=== PATIENT | male | born 1980 | race Two or more races ===

== ENCOUNTER 2019-01-29 19:27 | Emergency (ER) | payer OTHER ==
[2019-01-29] MEDS ORDERED: IBUPROFEN 400 MG TABLET (FP) PO ONE ×2 (19:39→19:51)
[2019-01-29 20:10] VITALS: BP 146/97; PULSE 67; TEMP 97.8; BMI 24.3
--- NOTE | 2019-01-29 20:12 | PDOC ---
Documentation entered by Reuben Landers SCRIBE, acting as scribe for Ko Mann MD. Ko Mann MD: This documentation has been prepared by the Anshul reese Joel, SCRIBE, under my direction and personally reviewed by me in its entirety. I confirm that the documentation accurately reflects all work , treatment, procedures, and medical decision making performed by me. History of Present Illness - General Chief Complaint: Pain, Acute Stated Complaint: TRIPPED AND INJURED RIGHT FOOT Time Seen by Provider: 01/29/19 19:38 History Source: Patient Exam Limitations: No Limitations - History of Present Illness Initial Comments: 01/29/19 19:43 The patient is a 38 year old male who presents to the emergency department with right foot pain s/p mechanical fall. The patient states he was walking up the stairs when he tripped on the riser of the first step and hit his right foot. The patient denies hitting his head or LOC. The patient denies chest pain, shortness of breath, headache, and dizziness. Denies fever, chills, nausea, vomit, diarrhea, and constipation. Denies dysuria, frequency, urgency, and hematuria. PAST MEDICAL HISTORY: no significant history PAST SURGICAL HISTORY: Unspecified R foot ortho procedure. FAMILY HISTORY: no pertinent history SOCIAL HISTORY: Pt lives with family and is employed. MEDICATIONS: reviewed ALLERGIES: NKA 01/29/19 20:10 Assessment and plan: This is a 38-year-old tripped while going up stairs injuring the dorsum of his foot. Patient most likely hyperextended the foot resulting in pain to the dorsum of the foot. Patient had an x-ray that was negative for any acute new pathology patient does have an old ankle fracture with hardware in place that appears to be intact. Patient given Motrin here in the ED and discharged home told to continue the Motrin or take some naproxen. Past History - Past Medical History Allergies/Adverse Reactions: Allergies Allergy/AdvReac Type Severity Reaction Status Date / Time No Known Allergies Allergy Verified 01/29/19 19:29 Home Medications: Ambulatory Orders NK [No Known Home Medication] 01/29/19 COPD: No Other medical history: DENIES - Suicide/Smoking/Psychosocial Hx Smoking History: Never smoked Have you smoked in the past 12 months: No Information on smoking cessation initiated: No Hx Alcohol Use: No Drug/Substance Use Hx: No Review of Systems - Review of Systems Able to Perform ROS?: Yes Comments:: 01/29/19 19:43 General: No fevers or chills, no weakness, no weight loss HEENT: No change in vision. No sore throat,. No ear pain CardioVascular: No chest pain or shortness of breath Respiratory: No cough, or wheezing. Gastrointestinal: no nausea, vomiting, diarrhea or constipation, No rectal bleeding Genitourinary: No dysuria, hematuria, or frequency Musculoskeletal: (+) Right foot pain. No joint pain. No joint or muscle swelling. Neurologic: No headache, vertigo, dizziness or loss of consciousness Psychiatric: nor depression Skin: No rashes or easy bruising Endocrine: no increased thirst or abnormal weight change Allergic: no skin or latex allergy All other systems reviewed and normal *Physical Exam - Vital Signs Last Vital Signs Temp Pulse Resp BP Pulse Ox 97.8 F 67 16 146/97 97 01/29/19 19:30 01/29/19 19:30 01/29/19 19:30 01/29/19 19:30 01/29/19 19:30 - Physical Exam Comments: 01/29/19 19:43 GENERAL: The patient is awake, alert, and fully oriented, in no acute distress. HEAD: Normal with no signs of trauma. EYES: Pupils equal, round and reactive to light, extraocular movements intact, sclera anicteric, conjunctiva clear. EXTREMITIES: (+) Tenderness on palpation to proximal portion of dorsum of right foot. Minimal swelling, no ecchymosis. No bony tenderness or deformity around right ankle. Neurovasculature distally intact. Normal range of motion. NEUROLOGICAL: Normal speech, normal gait. PSYCH: Normal mood, normal affect. SKIN: Warm, Dry, normal turgor, no rashes or lesions noted. ED Treatment Course - RADIOLOGY Radiology Studies Ordered: Category Date Time Status FOOT-RIGHT [RAD] Stat Radiology 01/29/19 19:38 Ordered - Medications Given in the ED: ED Medications Discontinued Medications Generic Name Dose Route Start Last Admin Trade Name Freq PRN Reason Stop Dose Admin Ibuprofen 800 mg 01/29/19 19:39 01/29/19 19:55 Motrin - PO 01/29/19 19:40 800 mg ONCE ONE Administration *DC/Admit/Observation/Transfer Diagnosis at time of Disposition: Sprain of right foot Qualifiers: Encounter type: initial encounter Qualified Code(s): S93.601A - Unspecified sprain of right foot, initial encounter - Discharge Dispostion Disposition: HOME Condition at time of disposition: Stable Decision to Admit order: No - Referrals - Patient Instructions Additional Instructions: For the pain U can take ibuprofen 3 tablets 3 times a day with food or alternatively Aleve 2 tablets twice a day with food. Return to the emergency department immediately with ANY new, persistent or worsening symptoms. Continue any medications as previously prescribed by your physician. You should follow up with your primary doctor as soon as possible regarding today's emergency department visit. . Please make sure your doctor reviews the results of your emergency evaluation. Thank you for coming to the Emergency Department today for your care. It was a pleasure to see you today. Please note that your evaluation is INCOMPLETE until you follow-up with your doctor. - Post Discharge Activity
== END 2019-01-29 20:20 | disposition home or self-care (01) ==
LOC: FER 19:27
DX: S93.601A Unspecified sprain of right foot, initial encounter (principal); X58.XXXA Exposure to other specified factors, initial encounter; Y93.89 Activity, other specified; Y92.89 Other specified places as the place of occurrence of the external cause
CPT/HCPCS: 73630-TC-RT-FY; 99281-25

== ENCOUNTER 2022-01-08 06:23 | Emergency (ER) | payer OTHER ==
[2022-01-08 06:38] VITALS: BP 128/61; PULSE 85; TEMP 98.1; BMI 25.8
[2022-01-08] MEDS ORDERED: ACETAMINOPHEN 500 MG TABLET (FP) PO ONE (07:06)
[2022-01-08] MEDS ORDERED: ACETAMINOPHEN 325 MG TABLET (FP) ONE (07:11)
[2022-01-08] MEDS ORDERED: KETOROLAC TROMETHAMINE 30 MG/1 ML VIAL IM ONE (07:24)
[2022-01-08] MEDS ORDERED: KETOROLAC TROMETHAMINE 30 MG/1 ML VIAL ONE (07:47)
[2022-01-08 09:11] LABS: BASO % 0.1 % (0-2.0); EOS % 0.2 % (0-4.5); HEMATOCRIT 41.3 % (35.4-49); HEMOGLOBIN 14.3 GM/dL (11.7-16.9); LYMPH % 5.6 % (8-40); MCH 29.4 pg (25.7-33.7); MCHC 34.7 g/dl (32.0-35.9); MEAN CELL VOLUME 84.8 fl (80-96); MEAN PLT VOLUME 8.1 fl (7.5-11.1); NEUT % 88.1 % (42.8-82.8); PLATELET COUNT 367 10^3/uL (134-434); RBC 4.88 M/mm3 (4.00-5.60); RDW 13.5 % (11.9-15.9); WHITE BLOOD COUNT 16.8 K/mm3 (4.0-10.0)
[2022-01-08 09:18] LABS: INR 1.07 (0.83-1.09); PROTHROMBIN TIME (PATIENT) 12.3 SEC (9.7-13.0)
[2022-01-08 09:20] LABS: ACTIVATED PTT 28.8 SECONDS (25.2-36.5)
[2022-01-08 10:11] LABS: CALCIUM 8.5 mg/dL (8.5-10.1)
[2022-01-08 10:12] LABS: ALBUMIN 3.7 g/dl (3.4-5.0); BLOOD UREA NITROGEN 13.7 mg/dL (7-18)
[2022-01-08 10:15] LABS: CREATININE 0.8 mg/dL (0.55-1.3)
[2022-01-08 10:16] LABS: BILIRUBIN,TOTAL 0.3 mg/dL (0.2-1)
[2022-01-08 10:17] LABS: TOT PROT 7.3 g/dl (6.4-8.2)
== END 2022-01-08 09:40 | disposition short-term general hospital (02) ==
LOC: JER 06:23
PROC: 3E023GC Introduction of Other Therapeutic Substance into Muscle, Percutaneous Approach (ICD-10-PCS; principal; 2022-01-08)
DX: S92.002A Unspecified fracture of left calcaneus, initial encounter for closed fracture (principal); W17.89XA Other fall from one level to another, initial encounter
CPT/HCPCS: 36415; 73610-TC-LT-FY; 73610-TC-RT-FY; 73630-TC-LT; 73630-TC-RT-FY; 73650-TC-LT-FY; 73650-TC-RT-FY; 80053; 85025; 85610; 85730; 99285-25; C9803-CS; U0003; U0005

== ENCOUNTER 2023-01-12 13:45 | Emergency (ER) | payer OTHER ==
[2023-01-12] MEDS ORDERED: IBUPROFEN 600 MG TABLET (FP) PO ONE ×2 (14:18→14:55)
[2023-01-12 14:22] VITALS: BP 124/90; PULSE 82; RESP 16; BMI 23.6
[2023-01-12 15:00] VITALS: TEMP 99.8
== END 2023-01-12 15:40 | disposition home or self-care (01) ==
LOC: FER 13:45
DX: R59.1 Generalized enlarged lymph nodes (principal); S39.011A Strain of muscle, fascia and tendon of abdomen, initial encounter; R10.31 Right lower quadrant pain; X50.0XXA Overexertion from strenuous movement or load, initial encounter; Y93.79 Activity, other specified sports and athletics; Y93.9 Activity, unspecified; Z20.822 Contact with and (suspected) exposure to COVID-19
CPT/HCPCS: 0241U-QW; 36415; 73502-TC-RT-FY; 81003; 81015; 87086; 87491; 87591; 99284-25

== ENCOUNTER 2023-04-17 10:28 | Emergency (ER) | payer OTHER ==
[2023-04-17 10:46] VITALS: BP 127/92; PULSE 99; RESP 18; TEMP 98.4; BMI 22.9
== END 2023-04-17 11:05 | disposition home or self-care (01) ==
LOC: FER 10:28
DX: H57.89 Other specified disorders of eye and adnexa (principal); H10.13 Acute atopic conjunctivitis, bilateral
CPT/HCPCS: 99282-25

== ENCOUNTER 2023-06-18 13:20 | Emergency (ER) | payer OTHER ==
[2023-06-18 13:48] VITALS: BP 131/84; PULSE 82; RESP 18; TEMP 98.4; BMI 22.9
[2023-06-18] MEDS ORDERED: SODIUM CHLORIDE 1,000 ML IV ONE (14:20)
[2023-06-18 14:46] LABS: HEMATOCRIT 41.1 % (35.4-49); HEMOGLOBIN 13.9 G/dL (11.7-16.9); MCH 29.7 pg (25.7-33.7); MCHC 33.8 g/dl (32.0-35.9); MEAN CELL VOLUME 87.6 fl (80-96); MEAN PLT VOLUME 7.9 fl (7.5-11.1); PLATELET COUNT 363.9 10^3/uL (134-434); RBC 4.69 10^6/uL (4.00-5.60); RDW 14.3 % (11.9-15.9); WHITE BLOOD COUNT 10.9 10^3/uL (4.0-10.8)
[2023-06-18 15:11] LABS: ALBUMIN 4.2 g/dl (3.4-5.0); BILIRUBIN,TOTAL 0.4 mg/dl (0.2-1); CALCIUM 9.2 mg/dl (8.5-10.1); CREATININE 0.7 mg/dl (0.6-1.3); POTASSIUM 3.6 mmol/L (3.5-5.1); TOT PROT 7.2 g/dl (6.4-8.2)
[2023-06-18 16:20] LABS: PLATELET ESTIMATE SIGNIFICANT INCREASE
[2023-06-18] MEDS ORDERED: AZITHROMYCIN 250 MG TABLET ONE (16:51)
== END 2023-06-18 16:04 | disposition home or self-care (01) ==
LOC: FER 13:20
PROC: 3E0337Z Introduction of Electrolytic and Water Balance Substance into Peripheral Vein, Percutaneous Approach (ICD-10-PCS; principal; 2023-06-18)
DX: R19.7 Diarrhea, unspecified (principal); Z20.822 Contact with and (suspected) exposure to COVID-19
CPT/HCPCS: 0241U-QW; 36415; 80053; 85027; 99284-25

== ENCOUNTER 2024-05-17 15:37 | Emergency (ER) | payer OTHER ==
[2024-05-17 15:58] VITALS: BP 134/100; PULSE 80; RESP 16; TEMP 98.1; BMI 23.6
[2024-05-17] MEDS ORDERED: IBUPROFEN 600 MG TABLET (FP) PO ONE (16:23)
[2024-05-17] MEDS ORDERED: LIDOCAINE 5% TOPICAL PATCH ONE (16:24)
[2024-05-17] MEDS: IBUPROFEN 600 MG TABLET (FP) PO ONE (16:27)
[2024-05-17] MEDS: LIDOCAINE 5% TOPICAL PATCH TP ONE (16:27)
[2024-05-17] MEDS ORDERED: LIDOCAINE PATCH REMOVAL MC SCH (22:00)
== END 2024-05-17 17:30 | disposition home or self-care (01) ==
LOC: FER 15:37
DX: S39.012A Strain of muscle, fascia and tendon of lower back, initial encounter (principal); S13.4XXA Sprain of ligaments of cervical spine, initial encounter; R51.9 Headache, unspecified; V43.52XA Car driver injured in collision with other type car in traffic accident, initial encounter; Y92.410 Unspecified street and highway as the place of occurrence of the external cause
CPT/HCPCS: 72050-TC-FY; 73562-TC-RT-FY; 99284-25